=== PATIENT | male | born 2000 | race Caucasian/White ===

== ENCOUNTER 2024-04-10 03:34 | Emergency (ER) | payer OTHER ==
[~2024-04-10] VITALS: Ht 167.6 cm; Wt 65.8 kg
[2024-04-10] MEDS ORDERED: Ketorolac Tromethamine 30 MG/ML VIAL IM ONE (04:10)
[2024-04-10] MEDS ORDERED: NAPROXEN250 MG PO (04:11)
== END 2024-04-10 04:30 | disposition home or self-care (01) ==
LOC: ED 03:34
DX: R07.89 Other chest pain (principal); M25.512 Pain in left shoulder; Z91.040 Latex allergy status